=== PATIENT | female | born 2000 | race African-American/Black ===

== ENCOUNTER 2019-08-29 11:25 | Emergency (ER) | payer OTHER ==
[~2019-08-29] VITALS: Ht 170.2 cm; Wt 78.0 kg
[2019-08-29 11:34] VITALS: BP 124/74
--- NOTE | 2019-08-29 11:59 | RAD ---
EXAM: HAND LEFT 3V 08/29/2019 11:40 AM CLINICAL INDICATION:Possible fracture COMPARISON:None TECHNIQUE:3 views of the left hand FINDINGS:There is irregularity along the volar ulnar aspect of the thumb distal phalanx, indeterminate. There is flexion of the thumb IP joint. Otherwise, no fracture or malalignment. Joint spaces are maintained. No soft tissue abnormality. IMPRESSION:Irregularity at the volar ulnar base of the thumb distal phalanx is indeterminate and could be projectional although small fracture not excluded. Correlate with site of pain. Otherwise normal radiograph. Electronically signed by: Dayanna Torres MD (08/29/2019 11:56 AM) [id number]
--- NOTE | 2019-08-29 12:20 | PHYS DOC ---
Past History Past Medical History: Anxiety, Depression Past Surgical History: No Surgical History Alcohol Use: None General Adult EDM: Chief Complaint: FINGER INJURY HPI: HPI: 18-year-old female presents with left index finger pain. She was driving a lawnmower and accidentally crashed into a pile of bricks. Her only pain is her left index finger. She is not sure what happened. She does not recall scratching it or hitting it directly because she was more worried about the pot ential for breaks to hit the rest of her body. It is most painful with full flexion full extension is painful but less painful. No history of other problems with this hand. Review of Systems: Review of Systems: Constitutional: Denies fever or chills Eyes: Denies change in visual acuity HENT: Denies nasal congestion or sore throat Respiratory: Denies cough or shortness of breath Cardiovascular: Denies chest pain or edema GI: Denies abdominal pain, nausea, vomiting, bloody stools or diarrhea : Denies dysuria Musculoskeletal: Left index finger pain Integument: Denies rash Neurologic: Denies headache, focal weakness or sensory changes Endocrine: Denies polyuria or polydipsia Lymphatic: Denies swollen glands Psychiatric: Denies depression or anxiety Heart Score: Risk Factors: Risk Factors: DM, Current or recent (<one month) smoker, HTN, HLP, family history of CAD, obesity. Risk Scores: Score 0 - 3: 2.5% MACE over next 6 weeks - Discharge Home Score 4 - 6: 20.3% MACE over next 6 weeks - Admit for Clinical Observation Score 7 - 10: 72.7% MACE over next 6 weeks - Early Invasive Strategies Allergies: Allergies: Allergies Coded Allergies Type Severity Reaction Last Updated Verified No Known Drug Allergies 08/29/19 No Physical Exam: PE: Constitutional: Well developed, well nourished, no acute distress, non-toxic appearance. [] HENT: Normocephalic, atraumatic, bilateral external ears normal, oropharynx moist, no oral exudates, nose normal. [] Eyes: PERRLA, EOMI, conjunctiva normal, no discharge. [] Neck: Normal range of motion, no tenderness, supple, no stridor. [] Cardiovascular:Heart rate regular rhythm, no murmur [] Lungs & Thorax: Bilateral breath sounds clear to auscultation [] Abdomen: Bowel sounds normal, soft, no tenderness, no masses, no pulsatile masses. [] Skin: Warm, dry, no erythema, no rash. [] Back: No tenderness, no CVA tenderness. [] Extremities: No obvious trauma to the left index finger, partially flexed, mild pain with full flexion or full extension. No ecchymosis or deformity [] Neurologic: Alert and oriented X 3, normal motor function, normal sensory function, no focal deficits noted. [] Psychologic: Affect normal, judgement normal, mood normal. [] Current Patient Data: Vital Signs: Vital Signs Date Time Temp Pulse Resp B/P (MAP) Pulse Ox O2 Delivery O2 Flow Rate FiO2 08/29/19 11:34 98.1 64 16 124/74 (91) 99 Room Air EKG: EKG: [] Radiology/Procedures: Radiology/Procedures: [] Impressions: EXAM: HAND LEFT 3V 08/29/2019 11:40 AM CLINICAL INDICATION:Possible fracture COMPARISON:None TECHNIQUE:3 views of the left hand FINDINGS:There is irregularity along the volar ulnar aspect of the thumb distal phalanx, indeterminate. There is flexion of the thumb IP joint. Otherwise, no fracture or malalignment. Joint spaces are maintained. No soft tissue abnormality. IMPRESSION:Irregularity at the volar ulnar base of the thumb distal phalanx is indeterminate and could be projectional although small fracture not excluded. Correlate with site of pain. Otherwise normal radiograph. Electronically signed by: Dayanna Torres MD (08/29/2019 11:56 AM) [id number] DICTATED AND SIGNED BY: DAYANNA TORRES MD DATE: 08/29/19 1156 CC: MARCUS ORDONEZ DO; SERG MOODY ~ Course & Med Decision Making: Course & Med Decision Making Pertinent Labs and Imaging studies reviewed. (See chart for details) The patient's x-ray is negative for fracture of the index finger. There is a possible abnormal finding of the thumb, but the patient has no pain or tenderness of the thumb. See official report for more details. This is likely either hyper extension injury or a jammed finger. We will splint it for comfort for a couple of days. She will also take ibuprofen. She is stable for discharge at this time. [] Dragon Disclaimer: Dragon Disclaimer: This electronic medical record was generated, in whole or in part, using a voice recognition dictation system. Departure Departure: Impression: Primary Impression: Finger pain, left Disposition: 01 HOME/RESIDENCE PRIOR TO ADM Condition: STABLE Referrals: SERG MOODY (PCP) Patient Instructions: Finger Sprain, [id number] MARCUS ORDONEZ DO August 29, 2019 12:20
== END 2019-08-29 12:28 | disposition home or self-care (01) ==
LOC: ER 11:25
DX: M79.645 Pain in left finger(s) (principal); G89.11 Acute pain due to trauma; V98.8XXA Other specified transport accidents, initial encounter; Y93.I9 Activity, other involving external motion; Y92.89 Other specified places as the place of occurrence of the external cause; Y99.8 Other external cause status
CPT/HCPCS: 73130; 99283